=== PATIENT | female | born 1955 | race Caucasian/White ===

== ENCOUNTER 2017-12-15 22:11 | Emergency (ER) | payer SELFPAY ==
[~2017-12-15] VITALS: Ht 162.6 cm; Wt 83.9 kg
[2017-12-16 00:50] VITALS: BP 111/69
[2017-12-16] MEDS ORDERED: IBUPROFEN 800 MG TAB PO ONE (01:30)
== END 2017-12-16 03:12 | disposition home or self-care (01) ==
LOC: ER 22:16
DX: S82.892A Other fracture of left lower leg, initial encounter for closed fracture (principal); Z88.0 Allergy status to penicillin; W19.XXXA Unspecified fall, initial encounter; Y93.89 Activity, other specified; Y99.8 Other external cause status; Y92.89 Other specified places as the place of occurrence of the external cause
CPT/HCPCS: 73610